=== PATIENT | female | born 1980 | race Caucasian/White ===

== ENCOUNTER 2020-02-07 16:43 | Emergency (ER) | payer SELFPAY ==
[~2020-02-07] VITALS: Ht 162.6 cm; Wt 106.8 kg
[2020-02-07 16:48] VITALS: BP 137/86
[2020-02-07] MEDS ORDERED: IBUP-1506 PO (16:54)
== END 2020-02-07 20:00 | disposition left against medical advice (07) ==
LOC: EMS 16:43
DX: R10.9 Unspecified abdominal pain (principal); Z53.21 Procedure and treatment not carried out due to patient leaving prior to being seen by health care provider